=== PATIENT | male | born 1960 | race Caucasian/White ===

== ENCOUNTER 2019-01-29 15:54 | Emergency (ER) | payer BC ==
[~2019-01-29] VITALS: Ht 195.6 cm; Wt 109.0 kg
[2019-01-29 17:40] LABS: BASOPHILS % (AUTO) 0.7 % (0-1); HEMATOCRIT 38.3 % (42.0-52.0); HEMOGLOBIN 13.5 g/dl (14.0-17.9); LYMPHOCYTES # (AUTO) 0.8 X10'3 (1.1-4.8); LYMPHOCYTES % (AUTO) 35.2 % (21-51); MEAN CORPUSCULAR HGB CONC 35.3 g/dL (33.0-36.5); MEAN CORPUSCULAR VOLUME 110.4 FL (78-98); MEAN PLATELET VOLUME 7.7 FL (7.4-10.4); MONOCYTES # (AUTO) 0.2 X10'3 (0-0.9); MONOCYTES % (AUTO) 8.6 % (2-12); NEUTROPHILS # (AUTO) 1.2 X10'3 (1.8-7.7); NEUTROPHILS % (AUTO) 54.5 % (42-75); RED BLOOD COUNT 3.47 X10'6 (4.70-6.10); RED CELL DISTRIBUTION WIDTH 13.7 % (11.5-14.5); WHITE BLOOD COUNT 2.3 X10'3 (4.5-11.0)
[2019-01-29 17:47] LABS: ALANINE AMINOTRANSFERASE 107 U/L (12-78); ALBUMIN 3.8 G/DL (3.4-5.0); ALBUMIN/GLOBULIN RATIO 1.2 (1.1-1.5); ALKALINE PHOSPHATASE 46 IU/L (46-116); ANION GAP 12 (8-16); ASPARTATE AMINO TRANSFERASE 245 U/L (10-37); BILIRUBIN,TOTAL 3.1 MG/DL (0.1-1.0); BLOOD UREA NITROGEN 7 MG/DL (7-18); BUN/CREATININE RATIO 9.9 (5.4-32.0); CALCIUM 8.1 MG/DL (8.5-10.1); CHLORIDE 103 MMOL/L (99-107); CREATININE 0.71 MG/DL (0.60-1.10); GLUCOSE 111 MG/DL (70-104); SODIUM 142 MMOL/L (135-145); TOTAL CARBON DIOXIDE 27.5 MMOL/L (24-32); eGFR > 90 ML/MIN
[2019-01-29] MEDS ORDERED: potassium Cl 20 mEq SR tablet PO STA (17:52)
[2019-01-29] MEDS ORDERED: normal saline 1000ML IV soln IVB ONE (18:20)
[2019-01-29 18:44] LABS: PLATELET COUNT 46 X10'3 (140-440)
[2019-01-29 18:52] LABS: TOTAL CELLS COUNTED 100
[2019-01-29 18:53] LABS: PLATELET ESTIMATE DECREASED; POLYCHROMASIA FEW
[2019-01-29] MEDS ORDERED: CHLO25CA10 PO (19:14)
[2019-01-29 19:30] VITALS: BP 142/72
== END 2019-01-29 19:31 | disposition home or self-care (01) ==
LOC: ER 15:55
DX: F10.239 Alcohol dependence with withdrawal, unspecified (principal); C95.90 Leukemia, unspecified not having achieved remission; R05 Cough; F17.200 Nicotine dependence, unspecified, uncomplicated; Z79.899 Other long term (current) drug therapy; Y90.9 Presence of alcohol in blood, level not specified
CPT/HCPCS: 36415; 80053; 85025; 85610; 93005; 99284; J7030

== ENCOUNTER 2020-02-08 17:54 | Emergency (ER) | payer BC ==
[~2020-02-08] VITALS: Ht 198.1 cm; Wt 110.3 kg
[~2020-02-08 17:54] MED LIST: CHLO25CA10 PO
[2020-02-08 18:58] LABS: BASOPHILS # (AUTO) 0.1 X10'3 (0-0.2); BASOPHILS % (AUTO) 1.3 % (0-1); EOSINOPHILS % (AUTO) 0.6 % (0-6); HEMATOCRIT 41.7 % (42.0-52.0); HEMOGLOBIN 14.6 g/dl (14.0-17.9); LYMPHOCYTES # (AUTO) 1.3 X10'3 (1.1-4.8); LYMPHOCYTES % (AUTO) 29.8 % (21-51); MEAN CORPUSCULAR HEMOGLOBIN 39.3 PG (27.0-31.0); MEAN CORPUSCULAR HGB CONC 34.9 g/dL (33.0-36.5); MEAN CORPUSCULAR VOLUME 112.7 FL (78-98); MEAN PLATELET VOLUME 8.1 FL (7.4-10.4); MONOCYTES # (AUTO) 0.3 X10'3 (0-0.9); MONOCYTES % (AUTO) 7.5 % (2-12); NEUTROPHILS # (AUTO) 2.7 X10'3 (1.8-7.7); NEUTROPHILS % (AUTO) 60.8 % (42-75); PLATELET COUNT 59 X10'3 (140-440); RED CELL DISTRIBUTION WIDTH 13.9 % (11.5-14.5); WHITE BLOOD COUNT 4.4 X10'3 (4.5-11.0)
[2020-02-08 19:08] LABS: ALANINE AMINOTRANSFERASE 106 U/L (12-78); ALBUMIN 3.9 G/DL (3.4-5.0); ALKALINE PHOSPHATASE 64 IU/L (46-116); ANION GAP 13 (8-16); ASPARTATE AMINO TRANSFERASE 318 U/L (10-37); BLOOD UREA NITROGEN 9 MG/DL (7-18); BUN/CREATININE RATIO 12.3 (5.4-32.0); CALCIUM 8.6 MG/DL (8.5-10.1); CHLORIDE 100 MMOL/L (99-107); CREATININE 0.73 MG/DL (0.60-1.10); GLUCOSE 98 MG/DL (70-104); LIPASE 163 U/L (73-393); SODIUM 142 MMOL/L (135-145); eGFR > 90 ML/MIN
[2020-02-08 19:09] LABS: ALBUMIN/GLOBULIN RATIO 1.1 (1.1-1.5); TOTAL PROTEIN 7.4 G/DL (6.4-8.2)
[2020-02-08 19:11] LABS: POTASSIUM 2.8 MMOL/L (3.5-5.1)
[2020-02-08] MEDS ORDERED: magnesium oxide 400mg tablet PO ONE (19:55)
[2020-02-08] MEDS ORDERED: potassium Cl 20 mEq SR tablet PO ONE (19:55)
[2020-02-08 20:06] LABS: ETHANOL 0.285 GM/DL (0.0-0.010)
--- NOTE | 2020-02-08 20:35 | NUR ---
Pt moved from [facility] bed 7 to ED bed 7. Pt is on the tele monitor, BP, and SpO2. Pt is awaiting lab results for further orders or disposition. Pt has no distress noted at this time.
[2020-02-08] MEDS ORDERED: albumin (human) 25% 100 ML IV solution IV ONE (21:25)
[2020-02-08] MEDS ORDERED: METR500T PO (22:04)
[2020-02-08] MEDS ORDERED: DICY10CA88 PO (22:04)
[2020-02-08] MEDS ORDERED: ONDA4TAB6 PO (22:04)
[2020-02-08] MEDS ORDERED: CIPR-259 PO (22:04)
[2020-02-08] MEDS ORDERED: POTA20TA19 PO (22:08)
[2020-02-08 22:28] VITALS: BP 117/67
== END 2020-02-08 22:30 | disposition home or self-care (01) ==
LOC: ER 17:55
DX: K70.31 Alcoholic cirrhosis of liver with ascites (principal); R10.84 Generalized abdominal pain; R11.10 Vomiting, unspecified; E87.6 Hypokalemia; R74.01 Elevation of levels of liver transaminase levels; F10.129 Alcohol abuse with intoxication, unspecified; K76.6 Portal hypertension; K52.9 Noninfective gastroenteritis and colitis, unspecified; K80.20 Calculus of gallbladder without cholecystitis without obstruction; Z72.89 Other problems related to lifestyle; Z79.2 Long term (current) use of antibiotics; Z79.899 Other long term (current) drug therapy; Y90.9 Presence of alcohol in blood, level not specified
CPT/HCPCS: 36415; 74176; 80053; 80320; 82140; 83690; 83735; 85025; 99284